=== PATIENT | female | born 1985 | race Caucasian/White ===

== ENCOUNTER 2016-05-31 03:12 | Emergency (ER) | payer BC ==
[~2016-05-31] VITALS: Ht 162.6 cm; Wt 65.0 kg
[2016-05-31 03:18] VITALS: BP 105/71; PULSE 96; RESP 18; TEMP 99.8; O2SAT 100
--- NOTE | 2016-05-31 03:43 | PD ---
HPI Chief Complaint: Abdominal Pain Time Seen by Provider: 03:28 Travel History International Travel<30 days: No Contact w/Intl Traveler<30days: No Traveled to known affect area: No History of Present Illness HPI The patient is a 30-year-old female who complains of nausea, global headache, diffuse abdominal pain for 24 hours. The headache is of gradual onset. She denies any vomiting. She denies any diarrhea. She thinks she probably has had a fever at home but did not take her temperature. She denies any possibility of . She does not have any dysuria, frequency or urgency. Because of the nausea she has not drank adequate amounts of liquids and she feels dehydrated. She has never had any abdominal surgery. She denies any cough or myalgias. She denies any sore throat or ear pain. She denies any diarrhea, she states her stools are hard. [facility] Past Medical History Medical History: Denies Significant Hx Diminished Hearing: No Tetanus Vaccination: Unknown Influenza Vaccination: No ?: Not LMP: 05/05/16 Past Surgical History Surgical History: No Previous Surgery Social History Alcohol Use: Yes ([facility]) Tobacco Use: No Substance Use: No Allergies-Medications (Allergen,Severity, Reaction): Coded Allergies: No Known Allergies (Unverified , 05/31/16) Review of Systems Except as stated in HPI: all other systems reviewed are Neg Physical Exam Narrative GENERAL: The patient is moderately dehydrated appearing, alert, oriented 3 in moderate apparent distress with her abdominal pain and headache. Her vital signs are normal except for temperature of 99.8. SKIN: Warm and dry. No skin rash is seen. HEAD: Atraumatic. Normocephalic. EYES: Pupils equal and round. No scleral icterus. No injection or drainage. ENT: No nasal bleeding or discharge. Mucous membranes pink and moist. NECK: Trachea midline. No JVD. There is no meningismus and the patient flexes neck fully without any hesitation so that the chin touches the chest. CARDIOVASCULAR: Regular rate and rhythm. No murmur appreciated. RESPIRATORY: No accessory muscle use. Clear to auscultation. Breath sounds equal bilaterally. GASTROINTESTINAL: Abdomen soft, with diffuse tenderness to direct palpation in all 4 quadrants, nondistended. Hepatic and splenic margins not palpable. No guarding or rebound is present. MUSCULOSKELETAL: No obvious deformities. No clubbing. No cyanosis. No edema. NEUROLOGICAL: Awake and alert. No obvious cranial nerve deficits. Motor grossly within normal limits. Normal speech. PSYCHIATRIC: Appropriate mood and affect; insight and judgment normal. GENITOURINARY: Normal external genitalia without lesions or erythema. Vaginal vault without blood and there is a white, clumpy, [id number] drainage. Cervical os was closed without drainage. No cervical motion tenderness. Uterus nontender and nonenlarged. Bilateral adnexa nontender without masses. Data Data Last Documented VS Vital Signs Date Time Temp Pulse Resp B/P Pulse Ox O2 Delivery O2 Flow Rate FiO2 05/31/16 05:53 78 16 99/58 99 Room Air 05/31/16 03:18 99.8 Orders Beta Hcg (Quant/Titer) (05/31/16 03:37) Complete Blood Count With Diff (05/31/16 03:37) Comprehensive Metabolic Panel (05/31/16 03:37) Lipase (05/31/16 03:37) Urinalysis - C+S If Indicated (05/31/16 03:37) Iv Access Insert/Monitor (05/31/16 03:37) Ecg Monitoring (05/31/16 03:37) Oximetry (05/31/16 03:37) Sodium Chloride 0.9% Flush (Ns Flush) (05/31/16 03:45) Sodium Chlor 0.9% 1000 Ml Inj (Ns 1000 M (05/31/16 03:45) Ondansetron Inj (Zofran Inj) (05/31/16 03:45) Hydromorphone Pf Inj (Dilaudid Pf Inj) (05/31/16 03:45) Ketorolac Inj (Toradol Inj) (05/31/16 04:00) Ct Abd/Pel W Iv Contrast(Rout) (05/31/16 04:37) Iohexol 350 Inj (Omnipaque 350 Inj) (05/31/16 05:11) Labs Laboratory Tests Test 05/31/16 05/31/16 03:50 05:05 White Blood Count 18.4 TH/MM3 Red Blood Count 4.63 MIL/MM3 Hemoglobin 14.1 GM/DL Hematocrit 41.8 % Mean Corpuscular Volume 90.2 FL Mean Corpuscular Hemoglobin 30.5 PG Mean Corpuscular Hemoglobin 33.9 % Concent Red Cell Distribution Width 12.0 % Platelet Count 276 TH/MM3 Mean Platelet Volume 7.3 FL Neutrophils (%) (Auto) % Lymphocytes (%) (Auto) % Monocytes (%) (Auto) % Eosinophils (%) (Auto) % Basophils (%) (Auto) % Neutrophils # (Auto) TH/MM3 Lymphocytes # (Auto) TH/MM3 Monocytes # (Auto) TH/MM3 Eosinophils # (Auto) TH/MM3 Basophils # (Auto) TH/MM3 CBC Comment AUTO DIFF Differential Total Cells 100 Counted Neutrophils % (Manual) 83 % Band Neutrophils % 10 % Lymphocytes % 2 % Monocytes % 5 % Neutrophils # (Manual) 17.1 TH/MM3 Differential Comment FINAL DIFF MANUAL Platelet Estimate NORMAL Platelet Morphology Comment NORMAL Red Cell Morphology Comment NORMAL Sodium Level 136 MEQ/L Potassium Level 3.6 MEQ/L Chloride Level 100 MEQ/L Carbon Dioxide Level 28.5 MEQ/L Anion Gap 8 MEQ/L Blood Urea Nitrogen 15 MG/DL Creatinine 0.92 MG/DL Estimat Glomerular Filtration 72 ML/MIN Rate Random Glucose 164 MG/DL Calcium Level 8.8 MG/DL Total Bilirubin 0.8 MG/DL Aspartate Amino Transf 32 U/L (AST/SGOT) Alanine Aminotransferase 54 U/L (ALT/SGPT) Alkaline Phosphatase 71 U/L Total Protein 7.6 GM/DL Albumin 4.1 GM/DL Lipase 171 U/L Human Chorionic Gonadotropin, LESS THAN 1 Quant MIU/ML Urine Color YELLOW Urine Turbidity SLIGHT Urine pH 8.0 Urine Specific [place] 1.025 Urine Protein NEG mg/dL Urine Glucose (UA) NEG mg/dL Urine Ketones NEG mg/dL Urine Occult Blood NEG Urine Nitrite NEG Urine Bilirubin NEG Urine Leukocyte Esterase TRACE Urine RBC 0-2 /hpf Urine WBC 3-5 /hpf Urine Squamous Epithelial > 8 /hpf Cells Urine Bacteria OCC /hpf Microscopic Urinalysis Comment CULT NOT INDICATED MDM Medical Decision Making Medical Screen Exam Complete: Yes Emergency Medical Condition: Yes Medical Record Reviewed: Yes Interpretation(s) The CBC shows a white count of 18,400 with 83% neutrophils and 10% bands. The complete metabolic profile shows a GFR of 72, glucose 164 and ALT of 54 but is otherwise unremarkable. The lipase is normal and the beta-hCG is less than 1. The urine shows slight turbidity, specific gravity of 1.0-5, trace leukocyte esterase and occasional bacteria and a culture is not indicated. The CT abdomen /pelvis with IV contrast is normal. Differential Diagnosis Viral gastritis, gastroenteritis, nonspecific viral syndrome, PID, ectopic, pregnancyintrauterine Narrative Course The patient has abdominal pain etiology undetermined. The pain is now localized in the lower quadrants. The white count is elevated but the CT scan is negative. The patient does complain of her global, gradual onset headache and has had a fever at home. This could be a viral syndrome. Additional Instructions: As we discussed, if he get worse please return to the emergency department. Your white count is elevated but the urine, other blood work and CT abdomen/ pelvis were all normal. Follow-up next week with your primary care physician. Med/Other Pt SpecificInfo: Prescription(s) given Scripts Hydrocodone-Acetaminophen (Lortab)5-325 Mg Tab1 Tab PO Q4H PRN (PAIN) #30 TAB Ref 0 Prov:Lorne Calvo MD 05/31/16 Promethazine (Phenergan)25 Mg Tab25 Mg PO Q6H PRN (Nausea/Vomiting) #30 TAB Ref 0 Prov:Lorne Calvo MD 05/31/16 Disposition: 01 DISCHARGE HOME Condition: Stable Lorne Calvo MD May 31, 2016 03:43
[2016-05-31] MEDS ORDERED: HYDROmorphone HCL PF 1 MG/ML VIAL IVP ONE ×2 (03:45→06:30)
[2016-05-31] MEDS ORDERED: SODIUM CHLORIDE 0.9% FLUSH 5 ML FLUSH IVF PRN (03:45)
[2016-05-31] MEDS ORDERED: ONDANSETRON HCL 4 MG/2 ML VIAL IV ONE ×2 (03:45→06:30)
[2016-05-31] MEDS: SODIUM CHLOR 0.9% 1000 ML INJ 1,000 ML IV SCH ×2 (03:55→04:15)
[2016-05-31] MEDS ORDERED: KETOROLAC TROMETHAMINE 60 MG/2 ML (IM) VIAL IM ONE (04:00)
[2016-05-31 04:07] LABS: HEMATOCRIT 41.8 % (35.0-46.0); MEAN CELL VOLUME 90.2 FL (80.0-100.0); MEAN CORPUSCULAR HEMOGLOBIN 30.5 PG (27.0-34.0); MEAN CORPUSCULAR HGB CONC 33.9 % (32.0-36.0); PLATELET COUNT 276 TH/MM3 (150-450); RED BLOOD COUNT 4.63 MIL/MM3 (4.00-5.30); WHITE BLOOD COUNT 18.4 TH/MM3 (4.0-11.0)
[2016-05-31 04:08] LABS: HEMO FLAGS AUTO DIFF
[2016-05-31 04:13] LABS: CHLORIDE 100 MEQ/L (98-107); POTASSIUM 3.6 MEQ/L (3.5-5.1); SODIUM (NA) 136 MEQ/L (136-145)
[2016-05-31 04:17] LABS: ANION GAP 8 MEQ/L (5-15); BICARBONATE 28.5 MEQ/L (21.0-32.0); BLOOD UREA NITROGEN 15 MG/DL (7-18)
[2016-05-31 04:20] LABS: ALT (GPT) 54 U/L (10-53); AST (GOT) 32 U/L (15-37); GLOMERULAR FILTRATION RATE 72 ML/MIN (>89)
[2016-05-31 04:22] LABS: BANDS 10 % (0-6); NEUTROPHIL # MANUAL DIFF 17.1 TH/MM3 (1.8-7.7); PLATELET ESTIMATE SMEAR NORMAL (NORMAL); PLATELET MORPHOLOGY NORMAL (NORMAL); POLYS (SEG NEUTROPHILS) 83 % (16-70); SCAN/DIFF FINAL DIFF MANUAL; TOTAL BILIRUBIN ADULT 0.8 MG/DL (0.2-1.0); WBC DIFF SAMPLE 100
[2016-05-31 04:23] LABS: ALKALINE PHOSPHATASE 71 U/L (45-117)
[2016-05-31 04:25] LABS: BETA HCG QUANT LESS THAN 1 MIU/ML (0-5)
[2016-05-31] MEDS ORDERED: IOHEXOL 350 MG/ML 10 ML VIAL (for RAD DIAG) IV ONE (05:11)
[2016-05-31 05:13] LABS: BLOOD, URINE NEG (NEG); GLUCOSE,URINE NEG (NEG); KETONE, URINE NEG (NEG); NITRITE,URINE NEG (NEG)
[2016-05-31 05:15] LABS: URINE COLOR YELLOW (YELLW/STRAW)
[2016-05-31 05:17] LABS: BACTERIA, URINE OCC /hpf; COMMENT (UR) CULT NOT INDICATED; CULTURE IF INDICATED CULT NOT INDICATED; RBC, URINE 0-2 /hpf (0-3); SQUAMOUS EPITHELIAL CELL URINE > 8 /hpf (0-5)
[2016-05-31 05:53] VITALS: BP 99/58; PULSE 78; RESP 16; O2SAT 99
--- NOTE | 2016-05-31 06:00 | RADHPO ---
EXAM DATE/TIME: 05/31/2016 04:53 [facility] COMPARISON: No previous studies available for comparison. INDICATIONS : Diffuse abdominal pain with nausea. IV CONTRAST: 96 cc Omnipaque 350 (iohexol) IV ORAL CONTRAST: No oral contrast ingested. RADIATION DOSE: 8.01 CTDIvol (mGy) MEDICAL HISTORY : None SURGICAL HISTORY : None. ENCOUNTER: Initial ACUITY: 1 day PAIN SCALE: 6/10 LOCATION: Abdomen. TECHNIQUE: Volumetric scanning of the abdomen and pelvis was performed. Using automated exposure control and ad justment of the mA and/or kV according to patient size, radiation dose was kept as low as reasonably achievable to obtain optimal diagnostic quality images. FINDINGS: LOWER LUNGS: The visualized lower lungs are clear. LIVER: Homogeneous density without lesion. There is no dilation of the biliary tree. No calcified gallston es. SPLEEN: Normal size without lesion. PANCREAS: Within normal limits. KIDNEYS: Normal in size and shape. There is no mass, stone or hydronephrosis. ADRENAL GLANDS: Within normal limits. VASCULAR: There is no aortic aneurysm. BOWEL/MESENTERY: The stomach, small bowel, and colon demonstrate no acute abnormality. There is no free intraperitone al air or fluid. ABDOMINAL WALL: Within normal limits. RETROPERITONEUM: There is no lymphadenopathy. BLADDER: No wall thickening or mass. REPRODUCTIVE: Within normal limits. INGUINAL: There is no lymphadenopathy or hernia. MUSCULOSKELETAL: Within normal limits for patient age. CONCLUSION: Normal examination. Jose Alejandro Vazquez MD on May 31, 2016 at 5:56 Board Certified Radiologist. This report was verified electronically.
[2016-05-31] MEDS ORDERED: PROM25TA5 PO (06:17)
[2016-05-31] MEDS ORDERED: HYDR-3533 PO (06:17)
[2016-05-31 06:47] VITALS: RESP 18
== END 2016-05-31 06:49 | disposition home or self-care (01) ==
LOC: PHED 03:12
DX: R10.30 Lower abdominal pain, unspecified (principal); R51 Headache; R11.0 Nausea; R50.9 Fever, unspecified
CPT/HCPCS: 74177; 80053; 81001; 83690; 84702; 85007; 85027; 96361; 96374; 96375; 96376; 99284; J1170; J2405; J7030; Q9967